=== PATIENT | male | born 1935 | race Caucasian/White ===

== ENCOUNTER 2018-11-06 22:01 | Inpatient (IN) | payer MEDICAID ==
[2018-11-06 22:11] VITALS: BMI 23.9
--- NOTE | 2018-11-06 23:00 | ED PDOC ---
Arrival/HPI - General Chief Complaint: Shortness Of Breath Time Seen by Provider: 11/06/18 22:44 Historian: Patient, Family (Son ) - History of Present Illness Narrative History of Present Illness (Text): 11/06/18 23:00 83 year old male, whose past medical history includes hypertension and a diagnosis of "water on the lungs", presents to the emergency department accompanied by son for sudden shortness of breath, 2 hours prior. Patient's son states he had a similar incidence 2 months ago, but never received a diagnosis because patient refused CT scan and other tests. Patient informs being on Lasix and denies any home oxygen. Patient denies any recent travel, chest pain, fevers, or cough. Patient also denies any chills, headache, dizziness, diaphoresis, abdominal pain, nausea, vomiting, diarrhea, back pain, neck pain, or any other complaint. PMD: Dr Cortes Cardiology: Dr Harvey Time/Duration: 1-3 hours Symptom Onset: Gradual Symptom Course: Unchanged Activities at Onset: Light Context: Home Past Medical History - Provider Review Nursing Documentation Reviewed: Yes - Cardiac Hx Cardiac Disorders: Yes Hx Hypertension: Yes - Pulmonary Hx Respiratory Disorders: No - Hematological/Oncological Hx Anemia: Yes - Psychiatric Hx Substance Use: No Family/Social History - Physician Review Nursing Documentation Reviewed: Yes Family/Social History: No Known Family HX Smoking Status: Former Smoker Hx Alcohol Use: No Hx Substance Use: No Allergies/Home Meds Allergies/Adverse Reactions: Allergies No Known Allergies Allergy (Verified 11/06/18 22:09) Home Medications: Home Meds Medication Instructions Recorded Confirmed Aspirin [Adult Low Dose Aspirin EC] 81 mg PO DAILY 11/06/18 11/06/18 Atorvastatin Calcium 1 tab PO DAILY 11/06/18 11/06/18 Carvedilol [Coreg] 1 tab PO DAILY 11/06/18 11/06/18 Cholecalciferol [Vitamin D 1000 IU] 50,000 unit PO QWK 11/06/18 11/06/18 Furosemide [Lasix] 40 mg PO QOTHERDAY 11/06/18 11/06/18 Lisinopril [Zestril] 1 tab PO DAILY 11/06/18 11/06/18 Meclizine HCl 1 tab PO DAILY 11/06/18 11/06/18 Multivit-Min/Folic/Vit K/Lycop 1 tab PO DAILY 11/06/18 11/06/18 [[facility] One Daily Men's Health Tab] Pantoprazole Sodium [Protonix] 40 mg pe PO DAILY 11/06/18 11/06/18 Sennosides [Laxative Pills] 1 tab PO PRN PRN 11/06/18 11/06/18 Spironolactone [Aldactone] 1 tab PO DAILY 11/06/18 11/06/18 Review of Systems - Physician Review All systems were reviewed & negative as marked: Yes - Review of Systems Constitutional: absent: Fevers Cardiovascular: absent: Chest Pain Physical Exam - Physical Exam Narrative Physical Exam (Text): 11/06/18 23:13 Constitutional: No acute distress. Uncomfortable. Head: Normocephalic. Atraumatic. Eyes: PERRL. ENT: Moist mucous membranes. Neck: Supple. Cardiovascular: Regular rate. Chest: No tenderness. Tachypneic. Respiratory: Crackles bilaterally. GI: Soft. Nontender. Nondistended. Back: No CVA tenderness. Musculoskeletal: No tenderness or swelling of extremities. Skin: No rash. Neurologic: Alert, no focal deficit. Vital Signs Reviewed: Yes Vital Signs Temp Pulse Resp BP Pulse Ox 11/06/18 22:33 95 H 22 142/75 97 11/06/18 22:15 97.4 F L 108 H 22 160/69 H 97 Temperature: Hypothermic Blood Pressure: Hypertensive Pulse: Tachycardic Respiratory Rate: Tachypneic Appearance: Positive for: Well-Appearing, Non-Toxic, Uncomfortable Pain Distress: None Mental Status: Positive for: Alert and Oriented X 3 Medical Decision Making ED Course and Treatment: 11/06/18 23:23 Impression: 83 year old male presents with shortness of breath. Plan: -- ABG -- CMP, Chemistry -- CBC, Platelets -- Chest X-ray -- Lasix -- Urine Cultures -- Urinalysis -- Reassess and disposition Prior Visits: Notes and results from previous visits were reviewed. Progress Notes: 11/06/18 23:49 CR Chest, 1 View. CLINICAL HISTORY: Dyspnea COMPARISON: None provided. FINDINGS: LUNGS: The lungs appear clear. PLEURAL SPACES: No pleural effusion or pneumothorax. MEDIASTINUM: There is marked cardiomegaly with central vascular congestion present. Prominent interstitial lung markings are noted to the periphery. These findings are thought compatible with CHF. Atheromatous plaquing is noted within the aortic arch. BONES: No aggressive appearing osseous lesion seen. IMPRESSION: 1. Findings compatible with CHF. - Scribe Statement The provider has reviewed the documentation as recorded by the Deanibe Berto Perea Provider Scribe Attestation: All medical record entries made by the Scribe were at my direction and personally dictated by me. I have reviewed the chart and agree that the record accurately reflects my personal performance of the history, physical exam, medical decision making, and the department course for this patient. I have also personally directed, reviewed, and agree with the discharge instructions and disposition. Disposition/Present on Arrival - Present on Arrival Any Indicators Present on Arrival: No History of DVT/PE: No History of Uncontrolled Diabetes: No Urinary Catheter: No History of Decub. Ulcer: No History Surgical Site Infection Following: None - Disposition Have Diagnosis and Disposition been Completed?: Yes Diagnosis: CHF exacerbation Disposition: HOSPITALIZED Disposition Time: 00:34 Patient Plan: Admission Condition: GUARDED
[2018-11-06 23:22] LABS: ARTERIAL BLOOD GAS HCO3 24.3 mmol/L (21-28); ARTERIAL BLOOD GAS O2 SAT 99.2 % (95-98); ARTERIAL BLOOD GAS PCO2 35 mm/Hg (35-45); ARTERIAL BLOOD GAS PH 7.45 (7.35-7.45); ARTERIAL BLOOD GAS TCO2 25.4 mmol.L (22-28)
[2018-11-06 23:39] LABS: BASO # 0.05 K/mm3 (0.0-2.0); BASO % 0.6 % (0.0-3.0); EOS # 0.3 (0.0-0.7); EOS % 3.8 % (1.5-5.0); HEMOGLOBIN 11.4 g/dL (14.0-18.0); LYMPH % 25.5 % (22.0-35.0); MEAN CELL VOLUME 100.3 fl (80.0-105.0); MEAN CORPUSCULAR HEMOGLOBIN 31.9 pg (25.0-35.0); MEAN CORPUSCULAR HGB CONC 31.8 g/dl (31.0-37.0); MEAN PLATELET VOLUME 10.6 fl (7.0-11.0); MONO # 0.8 (0.1-0.6); MONO % 9.7 % (1.0-6.0); RBC 3.57 10^6/uL (3.5-6.1); RED CELL DISTRIBUTION WIDTH 12.4 % (11.5-14.5); WHITE BLOOD COUNT 7.8 10^3/uL (4.5-11.0)
[2018-11-06 23:42] LABS: INR 1.1; PARTIAL THROMBOPLASTIN TIME 30.7 Seconds (26.9-38.3); PROTHROMBIN TIME 12.2 SECONDS (9.4-12.5)
[2018-11-06 23:46] LABS: ALB/GLOB RATIO 1.1 (1.1-1.8); ALBUMIN 4.6 g/dL (3.0-4.8); ALT/SGPT 31 U/L (7-56); AST/SGOT 75 U/L (17-59); BLOOD UREA NITROGEN 29 mg/dL (7-21); CALCIUM 9.3 mg/dL (8.4-10.5); GFR NON-AFRICAN AMERICAN 49
[2018-11-06 23:58] LABS: B-TYPE NATRIURETIC PEPTIDE 6720 pg/mL (0-450); TROPONIN I < 0.01 ng/mL
[2018-11-07 00:39] LABS: URINE BILIRUBIN NEGATIVE (NEGATIVE); URINE BLOOD NEGATIVE (NEGATIVE); URINE GLUCOSE (UA) NEGATIVE (NEGATIVE); URINE LEUKOCYTE ESTERASE SMALL Leu/uL (NEGATIVE); URINE PROTEIN 30 mg/dL (<30 mg/dL); URINE UROBILINOGEN 0.2 E.U./dL (<1 E.U./dL)
[2018-11-07 00:41] LABS: URINE APPEARANCE SL CLOUDY (CLEAR); URINE COLOR YELLOW (YELLOW)
[2018-11-07 00:57] LABS: URINE BACTERIA FEW /hpf; URINE EPITHELIAL CELLS 0 - 2 /hpf (0-5); URINE RBC 0 - 2 /hpf (0-2)
--- NOTE | 2018-11-07 01:11 | CP.PCM.HP ---
History of Present Illness - History of Present Illness History of Present Illness: PGY-1 History and Physical for Dr. Hodges Patient is an 83 year old male with PMHx ..... PMD: Dr Cortes Cardiology: Dr Harvey Past Patient History - Past Social History Smoking Status: Former Smoker - CARDIAC Hx Cardiac Disorders: Yes Hx Hypertension: Yes - PULMONARY Hx Respiratory Disorders: No - HEMATOLOGICAL/ONCOLOGICAL Hx Anemia: Yes - PSYCHIATRIC Hx Substance Use: No Meds Allergies/Adverse Reactions: Allergies Allergy/AdvReac Type Severity Reaction Status Date / Time No Known Allergies Allergy Verified 11/06/18 22:09 Results - Vital Signs Recent Vital Signs: Last Vital Signs Temp 97.4 F L 11/06/18 22:15 Pulse 79 11/07/18 00:40 Resp 18 11/07/18 00:40 BP 150/97 H 11/07/18 00:40 Pulse Ox 98 11/07/18 00:40 - Labs Result Diagrams: 11/06/18 23:20 11/06/18 23:20 Labs: Laboratory Results - last 24 hr 11/06/18 11/06/18 11/06/18 23:14 23:20 23:20 WBC 7.8 RBC 3.57 Hgb 11.4 L Hct 35.8 L MCV 100.3 MCH 31.9 MCHC 31.8 RDW 12.4 Plt Count 341 MPV 10.6 Neut % (Auto) 60.4 Lymph % (Auto) 25.5 [place] % (Auto) 9.7 H Eos % (Auto) 3.8 Baso % (Auto) 0.6 Lymph # (Auto) 2.0 [place] # (Auto) 0.8 H Eos # (Auto) 0.3 Baso # (Auto) 0.05 Absolute Neuts (auto) 4.71 PT 12.2 INR 1.10 APTT 30.7 pCO2 35 pO2 105.0 H HCO3 24.3 ABG pH 7.45 ABG Total CO2 25.4 ABG O2 Saturation 99.2 H ABG Base Excess 0.7 ABG Potassium 5.3 H Sodium 136.0 Chloride 104.0 Glucose 142 H Lactate 1.1 FiO2 32.0 Potassium Carbon Dioxide Anion Gap BUN Creatinine Est GFR ( Amer) Est GFR (Non-Af Amer) Random Glucose Calcium Phosphorus Magnesium Total Bilirubin AST ALT Alkaline Phosphatase Total Creatine Kinase Troponin I NT-Pro-B Natriuret Pep Total Protein Albumin Globulin Albumin/Globulin Ratio Arterial Blood Potassium 5.3 H Urine Color Urine Appearance Urine pH Ur Specific [place] Urine Protein Urine Glucose (UA) Urine Ketones Urine Blood Urine Nitrate Urine Bilirubin Urine Urobilinogen Ur Leukocyte Esterase Urine RBC Urine WBC Ur Epithelial Cells Urine Bacteria 11/06/18 11/07/18 23:20 00:12 WBC RBC Hgb Hct MCV MCH MCHC RDW Plt Count MPV Neut % (Auto) Lymph % (Auto) [place] % (Auto) Eos % (Auto) Baso % (Auto) Lymph # (Auto) [place] # (Auto) Eos # (Auto) Baso # (Auto) Absolute Neuts (auto) PT INR APTT pCO2 pO2 HCO3 ABG pH ABG Total CO2 ABG O2 Saturation ABG Base Excess ABG Potassium Sodium 140 Chloride 101 Glucose Lactate FiO2 Potassium 5.4 H Carbon Dioxide 28 Anion Gap 17 BUN 29 H Creatinine 1.4 Est GFR ( Amer) 59 Est GFR (Non-Af Amer) 49 Random Glucose 124 H Calcium 9.3 Phosphorus 4.2 Magnesium 1.7 Total Bilirubin 0.6 AST 75 H ALT 31 Alkaline Phosphatase 84 Total Creatine Kinase 93 Troponin I < 0.01 NT-Pro-B Natriuret Pep 6720 H Total Protein 8.8 H Albumin 4.6 Globulin 4.2 Albumin/Globulin Ratio 1.1 Arterial Blood Potassium Urine Color Yellow Urine Appearance Sl cloudy Urine pH 6.0 Ur Specific [place] 1.020 Urine Protein 30 H Urine Glucose (UA) Negative Urine Ketones Negative Urine Blood Negative Urine Nitrate Negative Urine Bilirubin Negative Urine Urobilinogen 0.2 Ur Leukocyte Esterase Small H Urine RBC 0 - 2 Urine WBC 1 - 3 Ur Epithelial Cells 0 - 2 Urine Bacteria Few
--- NOTE | 2018-11-07 02:25 | CP.PCM.HP ---
History of Present Illness - History of Present Illness History of Present Illness: PGY-1 History and Physical For Dr. Hodges Patient is an 83 year old male with PMHx CHF, HTN who presents with chief complaint of shortness of breath. Patient presents to ED with his son at bedside who states that he came home to find his father sitting on the couch complaining that he was short of breath. Patient had a similar episode 2 years ago and was hospitalized at [facility]. The sports bookmaker at [facility] had wanted patient to undergo cardiac cath at that time, but patient refused the procedure. Today patient c/o shortness of breath that is worse when lying flat, and improved sitting up. He denies chest pain or palpitations, dizziness, fatigue, cough, fever. Patient takes 40 mg of lasix every other day in addition to other c ardiac meds, and patient's son states he is compliant with his meds. PMHx: CHF, HTN, Vit D. Deficiency All: NKA Surgeries: Denies Family hx: No known family hx Medications: Reviewed as per MAR Social hx: Former smoker, denies alcohol or drug use. Son helps with care. PMD: Dr Cortes Jr. Systems Administrator: Dr Harvey Present on Admission - Present on Admission Any Indicators Present on Admission: No Review of Systems - Constitutional Constitutional: absent: Chills, Fever - Cardiovascular Cardiovascular: Dyspnea, Dyspnea on Exertion. absent: Chest Pain, Edema, Leg Edema, Pedal Edema - Respiratory Respiratory: Dyspnea. absent: Cough, Hemoptysis, Wheezing, Excessive Mucous Production - Gastrointestinal Gastrointestinal: absent: Abdominal Pain, Nausea, Vomiting - Musculoskeletal Musculoskeletal: absent: Back Pain, Neck Pain - Neurological Neurological: absent: Dizziness, Numbness, Weakness - Psychiatric Psychiatric: absent: Anxiety, Depression - Hematologic/Lymphatic Hematologic: absent: Easy Bleeding, Easy Bruising Past Patient History - Past Social History Smoking Status: Former Smoker - CARDIAC Hx Cardiac Disorders: Yes Hx Hypertension: Yes - PULMONARY Hx Respiratory Disorders: No - HEMATOLOGICAL/ONCOLOGICAL Hx Anemia: Yes - PSYCHIATRIC Hx Substance Use: No Meds Allergies/Adverse Reactions: Allergies Allergy/AdvReac Type Severity Reaction Status Date / Time No Known Allergies Allergy Verified 11/06/18 22:09 Physical Exam - Constitutional Appears: Non-toxic, No Acute Distress - Head Exam Head Exam: ATRAUMATIC, NORMOCEPHALIC - Eye Exam Eye Exam: EOMI, Normal appearance - ENT Exam ENT Exam: Mucous Membranes Moist - Respiratory Exam Respiratory Exam: Rales (Rales at bases and mid lungs bilaterally), NORMAL BREATHING PATTERN. absent: Wheezes - Cardiovascular Exam Cardiovascular Exam: REGULAR RHYTHM, RRR, +S1, +S2. absent: JVD, +S4 - GI/Abdominal Exam GI & Abdominal Exam: Normal Bowel Sounds, Soft. absent: Tenderness - Extremities Exam Extremities exam: Positive for: normal inspection, pedal pulses present. Negative for: pedal edema, tenderness - Neurological Exam Neurological exam: Alert, CN II-XII Intact, Oriented x3 - Psychiatric Exam Psychiatric exam: Normal Affect, Normal Mood - Skin Skin Exam: Dry, Intact, Normal Color, Warm Results - Vital Signs Recent Vital Signs: Last Vital Signs Temp 97.4 F L 11/06/18 22:15 Pulse 79 11/07/18 00:40 Resp 18 11/07/18 00:40 BP 150/97 H 11/07/18 00:40 Pulse Ox 98 11/07/18 00:40 - Labs Result Diagrams: 11/06/18 23:20 11/06/18 23:20 Labs: Laboratory Results - last 24 hr 11/06/18 11/06/18 11/06/18 23:14 23:20 23:20 WBC 7.8 RBC 3.57 Hgb 11.4 L Hct 35.8 L MCV 100.3 MCH 31.9 MCHC 31.8 RDW 12.4 Plt Count 341 MPV 10.6 Neut % (Auto) 60.4 Lymph % (Auto) 25.5 [place] % (Auto) 9.7 H Eos % (Auto) 3.8 Baso % (Auto) 0.6 Lymph # (Auto) 2.0 [place] # (Auto) 0.8 H Eos # (Auto) 0.3 Baso # (Auto) 0.05 Absolute Neuts (auto) 4.71 PT 12.2 INR 1.10 APTT 30.7 pCO2 35 pO2 105.0 H HCO3 24.3 ABG pH 7.45 ABG Total CO2 25.4 ABG O2 Saturation 99.2 H ABG Base Excess 0.7 ABG Potassium 5.3 H Sodium 136.0 Chloride 104.0 Glucose 142 H Lactate 1.1 FiO2 32.0 Potassium Carbon Dioxide Anion Gap BUN Creatinine Est GFR ( Amer) Est GFR (Non-Af Amer) Random Glucose Calcium Phosphorus Magnesium Total Bilirubin AST ALT Alkaline Phosphatase Total Creatine Kinase Troponin I NT-Pro-B Natriuret Pep Total Protein Albumin Globulin Albumin/Globulin Ratio Arterial Blood Potassium 5.3 H Urine Color Urine Appearance Urine pH Ur Specific [place] Urine Protein Urine Glucose (UA) Urine Ketones Urine Blood Urine Nitrate Urine Bilirubin Urine Urobilinogen Ur Leukocyte Esterase Urine RBC Urine WBC Ur Epithelial Cells Urine Bacteria 11/06/18 11/07/18 23:20 00:12 WBC RBC Hgb Hct MCV MCH MCHC RDW Plt Count MPV Neut % (Auto) Lymph % (Auto) [place] % (Auto) Eos % (Auto) Baso % (Auto) Lymph # (Auto) [place] # (Auto) Eos # (Auto) Baso # (Auto) Absolute Neuts (auto) PT INR APTT pCO2 pO2 HCO3 ABG pH ABG Total CO2 ABG O2 Saturation ABG Base Excess ABG Potassium Sodium 140 Chloride 101 Glucose Lactate FiO2 Potassium 5.4 H Carbon Dioxide 28 Anion Gap 17 BUN 29 H Creatinine 1.4 Est GFR ( Amer) 59 Est GFR (Non-Af Amer) 49 Random Glucose 124 H Calcium 9.3 Phosphorus 4.2 Magnesium 1.7 Total Bilirubin 0.6 AST 75 H ALT 31 Alkaline Phosphatase 84 Total Creatine Kinase 93 Troponin I < 0.01 NT-Pro-B Natriuret Pep 6720 H Total Protein 8.8 H Albumin 4.6 Globulin 4.2 Albumin/Globulin Ratio 1.1 Arterial Blood Potassium Urine Color Yellow Urine Appearance Sl cloudy Urine pH 6.0 Ur Specific [place] 1.020 Urine Protein 30 H Urine Glucose (UA) Negative Urine Ketones Negative Urine Blood Negative Urine Nitrate Negative Urine Bilirubin Negative Urine Urobilinogen 0.2 Ur Leukocyte Esterase Small H Urine RBC 0 - 2 Urine WBC 1 - 3 Ur Epithelial Cells 0 - 2 Urine Bacteria Few Assessment & Plan - Assessment and Plan (Free Text) Assessment: CHF Exacerbation -Chest XR 11/06: Findings compatible with CHF -pro-BNP 6720. F/u repeat pro-BNP. -Echo - f/u -Serial EKG, Troponins - f/u 0500, 11:00. Initial troponin WNL. -Daily weights -Intake and output -Increase Lasix from home dose 40 PO every other day to 40 mg IV Q12 -Cardio consult, Dr. Bernard - f/u Meds: -ASA 81 mg PO daily -Coreg 3.125 mg PO daily -Lasix 40 mg IV Q12 -Aldactone 25 mg PO daily -Atorvastatin 40 mg PO daily Hyperkalemia Meds -Kayexalate 15 mg PO once -F/u AM CMP HTN Meds -Lisinopril 2.5 mg PO daily -Coreg 3.125 mg PO daily Hyperlipidemia Meds -Atorvastatin 40 mg PO daily Vit D Deficiency Meds -Vit D 70998 U Qwk Vertigo Meds -Antivert 12.5 mg PO daily GERD Meds -Protonix 40 mg PO daily Constipation Meds -Senokot 8.6 mg PO daily prn PPx -DVT: Heparin 5000 U SC Q8 -GI: Protonix 40 mg PO daily (home med) -HHD Assessment and plan d/w Dr. Carroll Anna, PGY-1
[2018-11-07 06:27] VITALS: O2SAT 96
[2018-11-07] MEDS: Pantoprazole 40 mg EC Tab PO SCH (06:30)
[2018-11-07 07:22] LABS: BASO # 0.02 K/mm3 (0.0-2.0); BASO % 0.3 % (0.0-3.0); EOS % 0.4 % (1.5-5.0); HEMOGLOBIN 10.9 g/dL (14.0-18.0); LYMPH # 0.9 (1.2-3.4); LYMPH % 12.8 % (22.0-35.0); MEAN CORPUSCULAR HEMOGLOBIN 31.8 pg (25.0-35.0); MEAN CORPUSCULAR HGB CONC 31.8 g/dl (31.0-37.0); MEAN PLATELET VOLUME 9.8 fl (7.0-11.0); MONO # 0.7 (0.1-0.6); MONO % 9.9 % (1.0-6.0); RBC 3.43 10^6/uL (3.5-6.1); RED CELL DISTRIBUTION WIDTH 12.3 % (11.5-14.5); WHITE BLOOD COUNT 7.4 10^3/uL (4.5-11.0)
[2018-11-07 07:36] LABS: CALCIUM 8.8 mg/dL (8.4-10.5)
[2018-11-07 07:44] LABS: TROPONIN I 0.05 ng/mL
--- NOTE | 2018-11-07 09:20 | CARD ---
APPROVED REPORT Date of service: 11/06/2018 EKG Measurement Heart [id number] <Conclusion> Sinus tachycardia with premature atrial complexes Septal infarct, age undetermined ST & T wave abnormality, consider inferior ischemia ST & T wave abnormality, consider anterolateral ischemia Abnormal ECG
--- NOTE | 2018-11-07 09:23 | RAD ---
Date of service: 11/06/2018 HISTORY: dyspnea COMPARISON: No prior. TECHNIQUE: 1 view obtained. FINDINGS: LUNGS: No active pulmonary disease. PLEURA: No significant pleural effusion identified, no pneumothorax apparent. CARDIOVASCULAR: There is atherosclerotic calcification of thoracic aorta. Normal cardiac size. Congestive change is noted. Mild reticular interstitial prominence likely related to interstitial edema. OSSEOUS STRUCTURES: No significant abnormalities. VISUALIZED UPPER ABDOMEN: Normal. OTHER FINDINGS: None. IMPRESSION: Probable congestive heart failure. No acute infiltrate. The preliminary findings for this examination were reported by [facility] Radiology at 11:45 p.m. on 11/06/2018. There is concurrence of this report with the preliminary findings.
--- NOTE | 2018-11-07 09:25 | CARD ---
APPROVED REPORT Date of service: 11/07/2018 EKG Measurement Heart [id number] <Conclusion> Sinus rhythm with premature atrial complexes Left ventricular hypertrophy with repolarization abnormality Cannot rule out Inferior infarct, age undetermined Abnormal ECG
[2018-11-07] MEDS ORDERED: Ergocalciferol 50,000 Intl Units Cap PO SCH (10:00)
--- NOTE | 2018-11-07 11:20 | CP.PCM.PN ---
Subjective - Date & Time of Evaluation Date of Evaluation: 11/07/18 Time of Evaluation: 10:15 Objective - Vital Signs/Intake and Output Vital Signs (last 24 hours): Temp Pulse Resp BP Pulse Ox 98.4 F 90 18 156/72 H 96 11/07/18 06:00 11/07/18 06:00 11/07/18 06:00 11/07/18 06:00 11/07/18 06:00 Intake and Output: 11/07/18 11/07/18 06:59 18:59 Intake Total 200 Output Total 500 Balance -300 - Medications Medications: Current Medications Aspirin (Ecotrin) 81 mg PO DAILY [facility] Atorvastatin Calcium (Lipitor) 40 mg PO DAILY [facility] Carvedilol (Coreg) 3.125 mg PO DAILY [facility] Ergocalciferol (Drisdol 50,000 Intl Units Cap) 1 cap PO Q7D [facility] Furosemide (Lasix) 40 mg IVP Q12 [facility] Heparin Sodium (Porcine) (Heparin) 5,000 units SC Q8 [facility]; Protocol Last Admin: 11/07/18 06:04 Dose: 5,000 units Lisinopril (Zestril) 2.5 mg PO DAILY [facility] Meclizine HCl (Antivert) 12.5 mg PO DAILY [facility] Multivitamins/Minerals (Therapeutic-M Tab) 1 tab PO DAILY [facility] Pantoprazole Sodium (Protonix Ec Tab) 40 mg PO 0600 [facility] Last Admin: 11/07/18 06:30 Dose: 40 mg Sennosides (Senokot Tab) 8.6 mg PO DAILY PRN PRN Reason: Constipation Spironolactone (Aldactone) 25 mg PO DAILY [facility] - Labs Labs: 11/07/18 06:30 11/07/18 06:30 PT 12.2 SECONDS (9.4-12.5) 11/06/18 23:20 INR 1.10 11/06/18 23:20 APTT 30.7 Seconds (26.9-38.3) 11/06/18 23:20
[2018-11-07] MEDS: Multivitamin With Minerals Tab PO SCH (12:07)
--- NOTE | 2018-11-07 17:39 | CARD ---
APPROVED REPORT Date of service: 11/07/2018 EKG Measurement Heart [id number] <Conclusion> Sinus rhythm with premature atrial complexes with aberrant conduction Intraventrilular conduction delay of LBBB type Left ventricular hypertrophy with repolarization abnormality Prolonged QT Abnormal ECG
[2018-11-07 19:37] VITALS: RESP 19
--- NOTE | 2018-11-08 02:27 | CON ---
DATE: 11/07/2018 CARDIOLOGY CONSULTATION REASON FOR CONSULTATION: Shortness of breath. HISTORY OF PRESENT ILLNESS: The patient is an 83-year-old [place] male who has a history of hypertension and congestive heart failure. According to the son, the patient is being followed by his botany teacher, Dr. Sebastian and was advised to undergo cardiac catheterization in the past, but he refused. The patient presents because of shortness of breath and weakness. He denies any retrosternal chest pain at this time. SOCIAL HISTORY: Patient is a nonsmoker. He lives by himself. However, his son lives nearby within a walking distance and he checks on him frequently. MEDICATIONS: Aldactone 25 mg once a day, Antivert 12.5 mg daily, Coreg 3.125 mg daily, aspirin 81 mg once a day, subcutaneous heparin 5000 units every 8 hours, Lasix 40 mg intravenously twice a day, Lipitor 40 mg once a day, Protonix 40 mg twice a day, multivitamin one tablet once a day, Zestril 2.5 mg daily. REVIEW OF SYSTEMS: No nausea. No vomiting. No fevers or chills. Patient complains of mild cough. PHYSICAL EXAMINATION: GENERAL: Patient is an elderly male who does not appear to be in acute distress. VITAL SIGNS: Blood pressure 160/72, heart rate 91, temperature 97.7, respirations 18. HEENT: Normocephalic. CHEST: Bibasilar rhonchi. HEART: S1, S2 regular. ABDOMEN: Soft. EXTREMITIES: No edema. LABORATORY DATA: Today's EKG revealed sinus rhythm at a rate of 94. LVH with repolarization changes. Prolonged QT interval. Today's hemoglobin and hematocrit 10.9 and 34.2, white count and platelet count are within normal limits. Today's SMA-7; sodium 138, potassium 5.2, chloride 100, CO2 of 26, glucose 118, BUN 31, creatinine 1.4. Magnesium today has been slightly below normal at 1.6, yesterday it was within normal limit. Troponin was less than 0.01, 0.05, 0.06. ProBNP 6720 and today is 13,600. PT, PTT, and INR are within normal limits. Chest x-ray revealed cardiomegaly with moderate CHF. ASSESSMENT: 1. Congestive heart failure. 2. Rule out underlying cardiomyopathy. The patient did refuse cardiac catheterization in the past. 3. Rule out underlying pneumonia. 4. Hypertension. 5. Hypomagnesemia. 6. Mild hyperkalemia. RECOMMENDATIONS: Continue Coreg 3.125 mg twice a day, aspirin 81 mg once a day, Lasix 40 mg intravenously twice a day, subcutaneous heparin 5000 units intravenously every 8 hours, Lipitor 40 mg once a day, lisinopril 2.5 mg once a day. Obtain an echocardiogram. Start Slow-Mag at one tablet once a day. Deep Powers MD
[2018-11-08] MEDS: Pantoprazole 40 mg EC Tab PO SCH (05:38)
[2018-11-08 06:30] LABS: BASO # 0.03 K/mm3 (0.0-2.0); BASO % 0.6 % (0.0-3.0); EOS # 0.2 (0.0-0.7); EOS % 4.1 % (1.5-5.0); LYMPH # 1.1 (1.2-3.4); LYMPH % 21.1 % (22.0-35.0); MEAN CELL VOLUME 99.7 fl (80.0-105.0); MEAN CORPUSCULAR HEMOGLOBIN 31.3 pg (25.0-35.0); MEAN CORPUSCULAR HGB CONC 31.4 g/dl (31.0-37.0); MONO # 0.7 (0.1-0.6); MONO % 13.1 % (1.0-6.0); RBC 3.19 10^6/uL (3.5-6.1); RED CELL DISTRIBUTION WIDTH 12.4 % (11.5-14.5); WHITE BLOOD COUNT 5.4 10^3/uL (4.5-11.0)
[2018-11-08 07:23] LABS: ALBUMIN 3.8 g/dL (3.0-4.8); CALCIUM 8.6 mg/dL (8.4-10.5)
[2018-11-08] MEDS ORDERED: Magnesium Chloride 64 mg ER Tab PO SCH (10:00)
[2018-11-08] MEDS: Multivitamin With Minerals Tab PO SCH (10:13)
--- NOTE | 2018-11-08 11:34 | CARD ---
APPROVED REPORT Date of service: 11/07/2018 EXAM: Two-dimensional and M-mode echocardiogram with Doppler and color Doppler. INDICATION Congestive Heart Failure 2D DIMENSIONS Left Atrium (2D)4.0 (1.6-4.0cm)IVSd1.5 (0.7-1.1cm) LVDd4.4 (3.9-5.9cm)LVOT Diameter2.0 (1.8-2.4cm) PWd1.2 (0.7-1.1cm)LVDs3.8 (2.5-4.0cm) FS (%) 13.7 %LVEF (%)29.5 (>50%) M-Mode DIMENSIONS Aortic Root2.50 (2.2-3.7cm)Aortic Cusp Exc.0.80 (1.5-2.0cm) Aortic Valve AoV Peak Navkyvwp580.0cm/sAoV VTI42.4cmAO Peak GR.20mmHg LVOT Peak Mezwryka10.7cm/sLVOT VTI13.60cmAO Mean GR.10mmHg YAIMA (VMAX)0.89ab2YTA (VTI)1.01cm2 Mitral Valve E/A ratio0.0 TDI E/Lateral E'0.0E/Medial E'0.0 LEFT VENTRICLE The left ventricle is normal size. There is mild to moderate concentric left ventricular hypertrophy. The systolic function is severely impaired. Significant regional wall motion abnormalities noted. Transmitral Doppler flow pattern is Grade I-abnormal relaxation pattern. No left ventricle thrombus noted on this study. RIGHT VENTRICLE The right ventricle is normal size. There is normal right ventricular wall thickness. The right ventricular systolic function is normal. ATRIA The left atrium size is normal. The right atrium size is normal. AORTIC VALVE The aortic valve is moderately sclerotic. There is moderate aortic regurgitation. There is no aortic valvular stenosis. MITRAL VALVE The mitral valve is not well visualized. There is no mitral valve regurgitation noted. There is no mitral valve stenosis. TRICUSPID VALVE There is no tricuspid valve regurgitation noted. There is no tricuspid valve regurgitation noted. GREAT VESSELS The aortic root is normal in size. PERICARDIAL EFFUSION There is a trace pericardial effusion. <Conclusion> The left ventricle is normal size. There is mild to moderate concentric left ventricular hypertrophy. The systolic function is severely impaired. Significant regional wall motion abnormalities noted. Transmitral Doppler flow pattern is Grade I-abnormal relaxation pattern. No left ventricle thrombus noted on this study. There is moderate aortic regurgitation.
[2018-11-08 12:12] VITALS: BP 119/62; PULSE 75; TEMP 98.2
--- NOTE | 2018-11-08 14:38 | PN ---
DATE: 11/08/2018 SUBJECTIVE: The patient's shortness of breath has improved. He denies any chest pain. PHYSICAL EXAMINATION VITAL SIGNS: Blood pressure 144/54, heart rate 68 and temperature 98.3. HEENT: Normocephalic. CHEST: Bilateral rhonchi. HEART: S1 and S2 regular. EXTREMITIES: Trace leg edema. LABORATORY DATA: Today's hemoglobin and hematocrit 10 and 31.8, white count and platelet count are within normal limits. Today's SMA-7 is within normal limits except for glucose 128, chloride of 97 and BUN of 37. Echocardiographic study is consistent with ischemic cardiomyopathy and moderate aortic insufficiency. ASSESSMENT: 1. Ischemic cardiomyopathy. 2. Moderate aortic insufficiency. 3. Hypertension. RECOMMENDATIONS: I did discuss the case with the primary structured cabling technician, Dr. Sebastian. The patient was offered cardiac catheterization several times in the past and he refused. I did offer the patient another cardiac catheterization this time, but he refused and he wanted to go home. The patient can be maintained on medical therapy including Aldactone 25 mg once a day, Coreg 3.125 mg once a day, aspirin 81 mg once a day, Lasix 40 mg p.o. twice a day, Lipitor 40 mg once a day and Zestril 2.5 mg once a day. The patient is fully alert, awake and oriented and is capable of his decision making. Deep Powers MD
--- NOTE | 2018-11-08 15:21 | CP.PCM.DIS ---
<Katia Marsh - Last Filed: 11/08/18 15:04> Provider - Provider Date of Admission: 11/07/18 00:34 Attending physician: Grecia Beyer MD Consults: 11/07/18 02:12 Cardiology Consult Routine Comment: Consulting Provider: Deep Powers Consulting Physician: Deep Powers Reason for Consult: CHF exacerbation Time Spent in preparation of Discharge (in minutes): 35 Hospital Course - Lab Results Lab Results: Most Recent Lab Values WBC 5.4 10^3/uL (4.5-11.0) D 11/08/18 06:00 RBC 3.19 10^6/uL (3.5-6.1) L 11/08/18 06:00 Hgb 10.0 g/dL (14.0-18.0) L 11/08/18 06:00 Hct 31.8 % (42.0-52.0) L 11/08/18 06:00 MCV 99.7 fl (80.0-105.0) 11/08/18 06:00 MCH 31.3 pg (25.0-35.0) 11/08/18 06:00 MCHC 31.4 g/dl (31.0-37.0) 11/08/18 06:00 RDW 12.4 % (11.5-14.5) 11/08/18 06:00 Plt Count 247 10^3/uL (120.0-450.0) 11/08/18 06:00 MPV 10.0 fl (7.0-11.0) 11/08/18 06:00 Neut % (Auto) 61.1 % (50.0-68.0) 11/08/18 06:00 Lymph % (Auto) 21.1 % (22.0-35.0) L 11/08/18 06:00 [place] % (Auto) 13.1 % (1.0-6.0) H 11/08/18 06:00 Eos % (Auto) 4.1 % (1.5-5.0) 11/08/18 06:00 Baso % (Auto) 0.6 % (0.0-3.0) 11/08/18 06:00 Lymph # (Auto) 1.1 (1.2-3.4) L 11/08/18 06:00 [place] # (Auto) 0.7 (0.1-0.6) H 11/08/18 06:00 Eos # (Auto) 0.2 (0.0-0.7) 11/08/18 06:00 Baso # (Auto) 0.03 K/mm3 (0.0-2.0) 11/08/18 06:00 Absolute Neuts (auto) 3.31 (1.4-6.5) 11/08/18 06:00 PT 12.2 SECONDS (9.4-12.5) 11/06/18 23:20 INR 1.10 11/06/18 23:20 APTT 30.7 Seconds (26.9-38.3) 11/06/18 23:20 pCO2 35 mm/Hg (35-45) 11/06/18 23:14 pO2 105.0 mm/Hg (80-100) H 11/06/18 23:14 HCO3 24.3 mmol/L (21-28) 11/06/18 23:14 ABG pH 7.45 (7.35-7.45) 11/06/18 23:14 ABG Total CO2 25.4 mmol.L (22-28) 11/06/18 23:14 ABG O2 Saturation 99.2 % (95-98) H 11/06/18 23:14 ABG Base Excess 0.7 mmol/L (-2.0-3.0) 11/06/18 23:14 ABG Potassium 5.3 mmol/L (3.6-5.2) H 11/06/18 23:14 Sodium 136.0 mmol/L (132-148) 11/06/18 23:14 Chloride 104.0 mmol/L (98-107) 11/06/18 23:14 Glucose 142 mg/dl (75-110) H 11/06/18 23:14 Lactate 1.1 mmol/L (0.7-2.1) 11/06/18 23:14 FiO2 32.0 % 11/06/18 23:14 Sodium 137 mmol/L (132-148) 11/08/18 06:00 Potassium 4.3 mmol/L (3.6-5.0) 11/08/18 06:00 Chloride 97 mmol/L (98-107) L 11/08/18 06:00 Carbon Dioxide 33 mmol/L (21-33) 11/08/18 06:00 Anion Gap 11 (10-20) 11/08/18 06:00 BUN 37 mg/dL (7-21) H 11/08/18 06:00 Creatinine 1.4 mg/dl (0.8-1.5) 11/08/18 06:00 Est GFR ( Amer) 59 11/08/18 06:00 Est GFR (Non-Af Amer) 49 11/08/18 06:00 Random Glucose 128 mg/dL (70-110) H 11/08/18 06:00 Calcium 8.6 mg/dL (8.4-10.5) 11/08/18 06:00 Phosphorus 3.9 mg/dL (2.5-4.5) 11/08/18 06:00 Magnesium 1.7 mg/dL (1.7-2.2) 11/08/18 06:00 Total Bilirubin 0.8 mg/dL (0.2-1.3) 11/08/18 06:00 AST 30 U/L (17-59) 11/08/18 06:00 ALT 19 U/L (7-56) 11/08/18 06:00 Alkaline Phosphatase 57 U/L (38-126) 11/08/18 06:00 Total Creatine Kinase 93 U/L (35-230) 11/06/18 23:20 Troponin I 0.06 ng/mL 11/07/18 11:55 NT-Pro-B Natriuret Pep 12445 pg/mL (0-450) H 11/07/18 06:30 Total Protein 7.5 g/dL (5.8-8.3) 11/08/18 06:00 Albumin 3.8 g/dL (3.0-4.8) 11/08/18 06:00 Globulin 3.7 gm/dL 11/08/18 06:00 Albumin/Globulin Ratio 1.0 (1.1-1.8) L 11/08/18 06:00 Arterial Blood Potassium 5.3 mmol/L (3.6-5.2) H 11/06/18 23:14 Urine Color Yellow (YELLOW) 11/07/18 00:12 Urine Appearance Sl cloudy (CLEAR) 11/07/18 00:12 Urine pH 6.0 (4.7-8.0) 11/07/18 00:12 Ur Specific [place] 1.020 (1.005-1.035) 11/07/18 00:12 Urine Protein 30 mg/dL (<30 mg/dL) H 11/07/18 00:12 Urine Glucose (UA) Negative mg/dL (NEGATIVE) 11/07/18 00:12 Urine Ketones Negative mg/dL (NEGATIVE) 11/07/18 00:12 Urine Blood Negative (NEGATIVE) 11/07/18 00:12 Urine Nitrate Negative (NEGATIVE) 11/07/18 00:12 Urine Bilirubin Negative (NEGATIVE) 11/07/18 00:12 Urine Urobilinogen 0.2 E.U./dL (<1 E.U./dL) 11/07/18 00:12 Ur Leukocyte Esterase Small Alberto/uL (NEGATIVE) H 11/07/18 00:12 Urine RBC 0 - 2 /hpf (0-2) 11/07/18 00:12 Urine WBC 1 - 3 /hpf (0-6) 11/07/18 00:12 Ur Epithelial Cells 0 - 2 /hpf (0-5) 11/07/18 00:12 Urine Bacteria Few /hpf (NONE) 11/07/18 00:12 Physical Exam - Constitutional Appears: Non-toxic, No Acute Distress - Head Exam Head Exam: ATRAUMATIC, NORMOCEPHALIC - Eye Exam Eye Exam: EOMI, Normal appearance - ENT Exam ENT Exam: Mucous Membranes Moist - Respiratory Exam Respiratory Exam: Rales (Rales at bases and mid lungs bilaterally), NORMAL BREATHING PATTERN. absent: Wheezes, respiratory distress - Cardiovascular Exam Cardiovascular Exam: REGULAR RHYTHM, +S1, +S2. absent: gallops, rubs - GI/Abdominal Exam GI & Abdominal Exam: Normal Bowel Sounds, Soft. absent: Tenderness - Extremities Exam Extremities exam: Positive for: normal inspection, pedal pulses present. Negative for: pedal edema, tenderness - Neurological Exam Neurological exam: Alert Oriented x3, CN II-XII Intact - Skin Skin Exam: Dry, Intact, Normal Color, Warm - Hospital Course Hospital Course: Upon admission, 83 year old male with PMHx CHF, HTN who presents with chief complaint of shortness of breath. Patient presents to ED with his son at bedside who states that he came home to find his father sitting on the couch complaining that he was short of breath. Patient had a similar episode 2 years ago and was hospitalized at [facility]. The risk manager at [facility] had wanted patient to undergo cardiac cath at that time, but patient refused the procedure. Today patient c/o shortness of breath that is worse when lying flat, and improved sitting up. He denies chest pain or palpitations, dizziness, fatigue, cough, fever. Patient takes 40 mg of lasix every other day in addition to other cardiac meds, and patient's son states he is compliant with his meds. During hospital course had BNP of 6720 and CXR showed probably congestive heart failure and patient admitted for CHF exacerbation. Patient was afebrile, no WBC count noted and K was 5.4 which resolved during hospital stay. Patient was seen by cardiology and continued on home medications ASA, coreg, lipitor, lisinopril, lasix 40 IV q12 and started on slow mag. Echo showed EF of 30% and PMD was notified of echo's results. Patient's respiratory symptoms improved during hospital stay and patient agreed with discharge today and all questions were answered to satisfaction. Patient agreed to follow up with PMD and risk manager within one week of discharge. Discharge Plan - Discharge Medications Prescriptions: Calcium/Chloride/Magnesium [Slow-Mag] 64 mg PO DAILY #30 ect - Follow Up Plan Condition: GUARDED Disposition: HOME/ ROUTINE Instructions: Heart Failure (DC), Pacemaker (DC), Pulmonary Edema (DC), Ascites (DC) Additional Instructions: Please follow up with your primary care doctor, Dr. Millard within 5-7 days of discharge. Please follow up with your risk manager, Dr. Sebastian within 5-7 days of discharge. Please continue your home medications as previously taken. As per our discussion you do not need refills at this time. Please obtain refills from your your primary care doctor. You have been started on a new medication called slow-mag once daily. Please obtain refills from your primary care doctor. Please return to the ED for for any new or worsening symptoms. Referrals: Jason Millard MD [Family Provider] - Gregorio Sebastian MD [Non-Staff] - <Grecia Beyer - Last Filed: 11/08/18 16:56> Provider - Provider Date of Admission: 11/07/18 00:34 Attending physician: Grecia Beyer MD Consults: 11/07/18 02:12 Cardiology Consult Routine Comment: Consulting Provider: Deep Powers Consulting Physician: Deep Powers Reason for Consult: CHF exacerbation Hospital Course - Lab Results Lab Results: Most Recent Lab Values WBC 5.4 10^3/uL (4.5-11.0) D 11/08/18 06:00 RBC 3.19 10^6/uL (3.5-6.1) L 11/08/18 06:00 Hgb 10.0 g/dL (14.0-18.0) L 11/08/18 06:00 Hct 31.8 % (42.0-52.0) L 11/08/18 06:00 MCV 99.7 fl (80.0-105.0) 11/08/18 06:00 MCH 31.3 pg (25.0-35.0) 11/08/18 06:00 MCHC 31.4 g/dl (31.0-37.0) 11/08/18 06:00 RDW 12.4 % (11.5-14.5) 11/08/18 06:00 Plt Count 247 10^3/uL (120.0-450.0) 11/08/18 06:00 MPV 10.0 fl (7.0-11.0) 11/08/18 06:00 Neut % (Auto) 61.1 % (50.0-68.0) 11/08/18 06:00 Lymph % (Auto) 21.1 % (22.0-35.0) L 11/08/18 06:00 [place] % (Auto) 13.1 % (1.0-6.0) H 11/08/18 06:00 Eos % (Auto) 4.1 % (1.5-5.0) 11/08/18 06:00 Baso % (Auto) 0.6 % (0.0-3.0) 11/08/18 06:00 Lymph # (Auto) 1.1 (1.2-3.4) L 11/08/18 06:00 [place] # (Auto) 0.7 (0.1-0.6) H 11/08/18 06:00 Eos # (Auto) 0.2 (0.0-0.7) 11/08/18 06:00 Baso # (Auto) 0.03 K/mm3 (0.0-2.0) 11/08/18 06:00 Absolute Neuts (auto) 3.31 (1.4-6.5) 11/08/18 06:00 PT 12.2 SECONDS (9.4-12.5) 11/06/18 23:20 INR 1.10 11/06/18 23:20 APTT 30.7 Seconds (26.9-38.3) 11/06/18 23:20 pCO2 35 mm/Hg (35-45) 11/06/18 23:14 pO2 105.0 mm/Hg (80-100) H 11/06/18 23:14 HCO3 24.3 mmol/L (21-28) 11/06/18 23:14 ABG pH 7.45 (7.35-7.45) 11/06/18 23:14 ABG Total CO2 25.4 mmol.L (22-28) 11/06/18 23:14 ABG O2 Saturation 99.2 % (95-98) H 11/06/18 23:14 ABG Base Excess 0.7 mmol/L (-2.0-3.0) 11/06/18 23:14 ABG Potassium 5.3 mmol/L (3.6-5.2) H 11/06/18 23:14 Sodium 136.0 mmol/L (132-148) 11/06/18 23:14 Chloride 104.0 mmol/L (98-107) 11/06/18 23:14 Glucose 142 mg/dl (75-110) H 11/06/18 23:14 Lactate 1.1 mmol/L (0.7-2.1) 11/06/18 23:14 FiO2 32.0 % 11/06/18 23:14 Sodium 137 mmol/L (132-148) 11/08/18 06:00 Potassium 4.3 mmol/L (3.6-5.0) 11/08/18 06:00 Chloride 97 mmol/L (98-107) L 11/08/18 06:00 Carbon Dioxide 33 mmol/L (21-33) 11/08/18 06:00 Anion Gap 11 (10-20) 11/08/18 06:00 BUN 37 mg/dL (7-21) H 11/08/18 06:00 Creatinine 1.4 mg/dl (0.8-1.5) 11/08/18 06:00 Est GFR ( Amer) 59 11/08/18 06:00 Est GFR (Non-Af Amer) 49 11/08/18 06:00 Random Glucose 128 mg/dL (70-110) H 11/08/18 06:00 Calcium 8.6 mg/dL (8.4-10.5) 11/08/18 06:00 Phosphorus 3.9 mg/dL (2.5-4.5) 11/08/18 06:00 Magnesium 1.7 mg/dL (1.7-2.2) 11/08/18 06:00 Total Bilirubin 0.8 mg/dL (0.2-1.3) 11/08/18 06:00 AST 30 U/L (17-59) 11/08/18 06:00 ALT 19 U/L (7-56) 11/08/18 06:00 Alkaline Phosphatase 57 U/L (38-126) 11/08/18 06:00 Total Creatine Kinase 93 U/L (35-230) 11/06/18 23:20 Troponin I 0.06 ng/mL 11/07/18 11:55 NT-Pro-B Natriuret Pep 40889 pg/mL (0-450) H 11/07/18 06:30 Total Protein 7.5 g/dL (5.8-8.3) 11/08/18 06:00 Albumin 3.8 g/dL (3.0-4.8) 11/08/18 06:00 Globulin 3.7 gm/dL 11/08/18 06:00 Albumin/Globulin Ratio 1.0 (1.1-1.8) L 11/08/18 06:00 Arterial Blood Potassium 5.3 mmol/L (3.6-5.2) H 11/06/18 23:14 Urine Color Yellow (YELLOW) 11/07/18 00:12 Urine Appearance Sl cloudy (CLEAR) 11/07/18 00:12 Urine pH 6.0 (4.7-8.0) 11/07/18 00:12 Ur Specific [place] 1.020 (1.005-1.035) 11/07/18 00:12 Urine Protein 30 mg/dL (<30 mg/dL) H 11/07/18 00:12 Urine Glucose (UA) Negative mg/dL (NEGATIVE) 11/07/18 00:12 Urine Ketones Negative mg/dL (NEGATIVE) 11/07/18 00:12 Urine Blood Negative (NEGATIVE) 11/07/18 00:12 Urine Nitrate Negative (NEGATIVE) 11/07/18 00:12 Urine Bilirubin Negative (NEGATIVE) 11/07/18 00:12 Urine Urobilinogen 0.2 E.U./dL (<1 E.U./dL) 11/07/18 00:12 Ur Leukocyte Esterase Small Alber[place]/uL (NEGATIVE) H 11/07/18 00:12 Urine RBC 0 - 2 /hpf (0-2) 11/07/18 00:12 Urine WBC 1 - 3 /hpf (0-6) 11/07/18 00:12 Ur Epithelial Cells 0 - 2 /hpf (0-5) 11/07/18 00:12 Urine Bacteria Few /hpf (NONE) 11/07/18 00:12 Attending/Attestation - Attestation I have personally seen and examined this patient.: Yes I have fully participated in the care of the patient.: Yes I have reviewed all pertinent clinical information, including history, physical exam and plan: Yes Notes (Text): 11/08/18 16:51 Attending note; Patient seen and examined with resident. Patient's son by the bedside. Patient is alert and awake. Shortness of breath improved significantly. denies any fevers, chills. Tolerating diet well. Ambulating with cane. Patient is a 83-year-old male with a past medical history of cardiomyopathy, CHF hypertension is admitted with shortness of breath. 1. Acute systolic CHF exacerbation; Started on IV Lasix. Patient diuresed well. Clinically significantly better. Off oxygen. Ambulating without oxygen. Patient will be discharged home. 2. Cardiomyopathy; ejection fraction of 30% . Cardiology evaluation malu reciated . Patient refused previous cardiac workup including cardiac cath. Patient can be discharged home with close follow-up with primary cardiology Dr. Sebastian. 3. Continue beta-bam, Lasix and Aldactone. Physical therapy evaluation appreciated. Patient will be discharged home today. Follow-up with PMD Dr. Millard. Follow-up with cardiology Dr. Sebastian. Diagnosis, follow-up plan discussed with patient and patient's son in detail. 11/08/18 16:56
== END 2018-11-08 15:13 | disposition home or self-care (01) | DRG 127 ==
LOC: ED 22:01 → ERH 11-07 00:34 → 2RNO 11-07 02:37
PROVIDERS: ADMIT Internal Medicine; ATTEND Internal Medicine
DX: I11.0 Hypertensive heart disease with heart failure (principal); I35.1 Nonrheumatic aortic (valve) insufficiency; E87.5 Hyperkalemia; I50.23 Acute on chronic systolic (congestive) heart failure; I25.5 Ischemic cardiomyopathy; E83.42 Hypomagnesemia; E55.9 Vitamin D deficiency, unspecified; E78.5 Hyperlipidemia, unspecified; K21.9 Gastro-esophageal reflux disease without esophagitis; K59.00 Constipation, unspecified; R42 Dizziness and giddiness; Z87.891 Personal history of nicotine dependence